=== PATIENT | male | born 1945 | race American Indian/Alaskan Native ===

== ENCOUNTER 2019-11-06 18:01 | Emergency (ER) | payer MEDICARE ==
[2019-11-06 19:40] LABS: Eosinophils # (Auto) 0.3 K/mm3 (0.0-0.4); Eosinophils % (Auto) 6.1 % (0.0-4.3); Hematocrit 37.5 % (35.5-45.6); Hemoglobin 12.6 gm/dl (11.8-15.2); Lymphocytes # (Auto) 1.1 K/mm3 (1.2-5.4); Lymphocytes % (Auto) 23.5 % (13.4-35.0); Mean Corpuscular HGB Conc 34 % (32-34); Mean Corpuscular Volume 88 fl (84-94); Monocytes # (Auto) 0.4 K/mm3 (0.0-0.8); Monocytes % (Auto) 9.5 % (0.0-7.3); Platelet Count 194 K/mm3 (140-440); Red Blood Count 4.24 M/mm3 (3.65-5.03); Red Cell Distribution Width 14.9 % (13.2-15.2)
[2019-11-06 20:01] LABS: Calcium 9.3 mg/dL (8.4-10.2)
[2019-11-06 20:01] LABS: Bilirubin,Urine NEG (Negative); Blood,Urine NEG (Negative); Color,Urine Yellow (Yellow); Mucus,Urine FEW /HPF; Protein,Urine <15 mg/dL mg/dL (Negative); Urobilinogen,Urine < 2.0 mg/dL (<2.0)
[2019-11-06 20:02] LABS: Amphetamine Screen,Urine PRESUMPTIVE NEGATIVE; Benzodiazepines Screen,Urine PRESUMPTIVE NEGATIVE; Cannabinoid Screen,Urine PRESUMPTIVE NEGATIVE; Cocaine Screen,Urine PRESUMPTIVE NEGATIVE; Methadone Screen,Urine PRESUMPTIVE NEGATIVE; Opiate Screen,Urine PRESUMPTIVE NEGATIVE
--- NOTE | 2019-11-06 20:03 | Emergency Department Report ---
ED Altered Mental Status HPI - General Chief Complaint: Medical Clearance Stated Complaint: HALLUCINATIONS PUI?: No Time Seen by Provider: 11/06/19 19:36 Source: patient Mode of arrival: Ambulatory Limitations: No Limitations - History of Present Illness Initial Comments: Mr. Bernal is a 74-year-old male with history of diabetes mellitus, hypertension, hyperlipidemia, prostate cancer who presents with paranoia, unusual behavior, delusional thought pattern for several months. Patient denies any pain or discomfort at this time. Patient referred from PCPs office for further evaluation. Further history obtained from daughter Jojo Roberts . She recently traveled from [facility] to assist with the medical care of her father. She has been called several times by his neighbors and police officers for abnormal behavior. Police officers have been called at least 9 different times by neighbors. Patient has been sleeping in his car. He is afraid of people who are in the home and garage. These people do not exist. He also suspects that these individuals desire to take his home away from him. Family friend informed the daughter that he was afraid of watching TV a few months. He felt that the individuals on TV were talking to him in an aggressive way. He actually hid himself from the television while it was on. He also informed his physician that people in magazine pictures are speaking to him. Daughter requested [id number] involuntary hold. She attempted to have patient placed in in psychiatric facility. However the facility staff member informed her that patient needed medical clearance and psychiatric consultation in the emergency department. Patient was evaluated by his primary care physician of over 15 years Dr. Cher morgan. Complaint: altered mental status -: Gradual, month(s) (Several months) Severity: severe Consistency of Symptoms: waxing and waning, getting worse Context: other (Paranoia, hallucinations, delusional thought pattern) Associated Symptoms: denies other symptoms - Related Data Home Medications Medication Instructions Recorded Confirmed Last Taken Glimepiride [Amaryl] 2 mg PO UNK 11/09/19 11/09/19 Unknown Pravastatin Sodium [Pravastatin] 10 mg PO QHS 11/09/19 11/09/19 Unknown lisinopriL [Zestril] 5 mg PO QDAY 11/09/19 11/09/19 Unknown metFORMIN [Glucophage] 500 tab PO UNK 11/09/19 11/09/19 Unknown Allergies Allergy/AdvReac Type Severity Reaction Status Date / Time No Known Allergies Allergy Unverified 11/06/19 18:48 ED Review of Systems ROS: Stated complaint: HALLUCINATIONS Other details as noted in HPI Comment: All other systems reviewed and negative Constitutional: denies: fever, malaise Respiratory: denies: cough, shortness of breath Gastrointestinal: denies: abdominal pain, nausea, vomiting Psychiatric: auditory hallucinations, visual hallucinations. denies: homicidal thoughts, suicidal thoughts ED Past Medical Hx - Past Medical History Previous Medical History?: Yes Hx Hypertension: Yes Hx Diabetes: Yes Additional medical history: HLD, prostate ca - Surgical History Past Surgical History?: Yes Additional Surgical History: Prostate - Social History Smoking Status: Never Smoker - Medications Home Medications: Home Medications Medication Instructions Recorded Confirmed Last Taken Type Glimepiride [Amaryl] 2 mg PO UNK 11/09/19 11/09/19 Unknown History Pravastatin Sodium [Pravastatin] 10 mg PO QHS 11/09/19 11/09/19 Unknown History lisinopriL [Zestril] 5 mg PO QDAY 11/09/19 11/09/19 Unknown History metFORMIN [Glucophage] 500 tab PO UNK 11/09/19 11/09/19 Unknown History ED Physical Exam - General Limitations: No Limitations General appearance: alert, in no apparent distress, other (Oriented to name, "[facility]", when asked about date "I do not care about dates. CLose to november. Year july be 2019") - Head Head exam: Present: atraumatic, normocephalic - Eye Eye exam: Present: normal appearance - ENT ENT exam: Present: mucous membranes moist - Neck Neck exam: Present: normal inspection, full ROM - Respiratory Respiratory exam: Present: normal lung sounds bilaterally. Absent: respiratory distress, wheezes, rales, rhonchi - Cardiovascular Cardiovascular Exam: Present: bradycardia, irregular rhythm. Absent: systolic murmur, diastolic murmur, rubs, gallop - GI/Abdominal GI/Abdominal exam: Present: soft, normal bowel sounds. Absent: distended, tenderness, guarding, rebound - Rectal Rectal exam: Present: deferred - Extremities Exam Extremities exam: Present: normal inspection - Back Exam Back exam: Present: normal inspection - Neurological Exam Neurological exam: Present: alert, other (oriented to name, "hospital") - Psychiatric Psychiatric exam: Present: flat affect - Skin Skin exam: Present: warm, dry, intact, normal color. Absent: rash ED Course Vital Signs 11/06/19 11/07/19 11/08/19 18:51 21:20 01:34 Temperature 98.1 F 98.4 F 98.4 F Pulse Rate 55 L 55 L 56 L Respiratory 18 18 18 Rate Blood Pressure 127/70 Blood Pressure 141/76 139/70 [Left] O2 Sat by Pulse 100 99 100 Oximetry 11/08/19 08:27 Temperature 97.8 F Pulse Rate 66 Respiratory 20 Rate Blood Pressure Blood Pressure 123/75 [Left] O2 Sat by Pulse 96 Oximetry - Lab Data Result diagrams: 11/06/19 19:16 11/07/19 16:45 Lab Results 11/06/19 11/06/19 11/06/19 Range/Units 19:16 19:16 19:41 WBC 4.5 (4.5-11.0) K/mm3 RBC 4.24 (3.65-5.03) M/mm3 Hgb 12.6 (11.8-15.2) gm/dl Hct 37.5 (35.5-45.6) % MCV 88 (84-94) fl MCH 30 (28-32) pg MCHC 34 (32-34) % RDW 14.9 (13.2-15.2) % Plt Count 194 (140-440) K/mm3 Lymph % (Auto) 23.5 (13.4-35.0) % [place] % (Auto) 9.5 H (0.0-7.3) % Eos % (Auto) 6.1 H (0.0-4.3) % Baso % (Auto) 1.0 (0.0-1.8) % Lymph # 1.1 L (1.2-5.4) K/mm3 [place] # 0.4 (0.0-0.8) K/mm3 Eos # 0.3 (0.0-0.4) K/mm3 Baso # 0.0 (0.0-0.1) K/mm3 Seg Neutrophils % 59.9 (40.0-70.0) % Seg Neutrophils # 2.7 (1.8-7.7) K/mm3 D-Dimer (0-234) ng/mlDDU Sodium 138 (137-145) mmol/L Potassium 3.6 (3.6-5.0) mmol/L Chloride 101.8 (98-107) mmol/L Carbon Dioxide 24 (22-30) mmol/L Anion Gap 16 mmol/L BUN 15 (9-20) mg/dL Creatinine 1.2 (0.8-1.3) mg/dL Estimated GFR 59 ml/min BUN/Creatinine Ratio 13 % Glucose 134 H (75-100) mg/dL Calcium 9.3 (8.4-10.2) mg/dL Ferritin (30.0-300.0) ng/mL Total Bilirubin 0.50 (0.1-1.2) mg/dL AST 20 (5-40) units/L ALT 18 (7-56) units/L Alkaline Phosphatase 66 (35-129) units/L Lactate Dehydrogenase (91-180) units/L C-Reactive Protein (0.00-1.30) mg/dL Total Protein 7.1 (6.3-8.2) g/dL Albumin 4.0 (3.9-5) g/dL Albumin/Globulin Ratio 1.3 % Procalcitonin (<0.15) ng/mL TSH (0.270-4.200) mlU/mL Urine Color Yellow (Yellow) Urine Turbidity Clear (Clear) Urine pH 5.0 (5.0-7.0) Ur Specific D[place]key 1.021 (1.003-1.030) Urine Protein <15 mg/dl (Negative) mg/dL Urine Glucose (UA) Neg (Negative) mg/dL Urine Ketones Neg (Negative) mg/dL Urine Blood Neg (Negative) Urine Nitrite Neg (Negative) Urine Bilirubin Neg (Negative) Urine Urobilinogen < 2.0 (<2.0) mg/dL Ur Leukocyte Esterase Neg (Negative) Urine WBC (Auto) 3.0 (0.0-6.0) /HPF Urine RBC (Auto) 1.0 (0.0-6.0) /HPF U Epithel Cells (Auto) < 1.0 (0-13.0) /HPF Urine Mucus Few /HPF Salicylates (2.8-20.0) mg/dL Urine Opiates Screen Urine Methadone Screen Acetaminophen (10.0-30.0) ug/mL Ur Barbiturates Screen Ur Phencyclidine Scrn Ur Amphetamines Screen U Benzodiazepines Scrn Urine Cocaine Screen U Marijuana (THC) Screen Drugs of Abuse Note Plasma/Serum Alcohol (0-0.07) % Coronavirus (PCR) (Negative) 11/06/19 11/06/19 11/06/19 Range/Units 19:41 19:42 19:42 WBC (4.5-11.0) K/mm3 RBC (3.65-5.03) M/mm3 Hgb (11.8-15.2) gm/dl Hct (35.5-45.6) % MCV (84-94) fl MCH (28-32) pg MCHC (32-34) % RDW (13.2-15.2) % Plt Count (140-440) K/mm3 Lymph % (Auto) (13.4-35.0) % [place] % (Auto) (0.0-7.3) % Eos % (Auto) (0.0-4.3) % Baso % (Auto) (0.0-1.8) % Lymph # (1.2-5.4) K/mm3 [place] # (0.0-0.8) K/mm3 Eos # (0.0-0.4) K/mm3 Baso # (0.0-0.1) K/mm3 Seg Neutrophils % (40.0-70.0) % Seg Neutrophils # (1.8-7.7) K/mm3 D-Dimer (0-234) ng/mlDDU Sodium (137-145) mmol/L Potassium (3.6-5.0) mmol/L Chloride (98-107) mmol/L Carbon Dioxide (22-30) mmol/L Anion Gap mmol/L BUN (9-20) mg/dL Creatinine (0.8-1.3) mg/dL Estimated GFR ml/min BUN/Creatinine Ratio % Glucose (75-100) mg/dL Calcium (8.4-10.2) mg/dL Ferritin (30.0-300.0) ng/mL Total Bilirubin (0.1-1.2) mg/dL AST (5-40) units/L ALT (7-56) units/L Alkaline Phosphatase (35-129) units/L Lactate Dehydrogenase (91-180) units/L C-Reactive Protein (0.00-1.30) mg/dL Total Protein (6.3-8.2) g/dL Albumin (3.9-5) g/dL Albumin/Globulin Ratio % Procalcitonin (<0.15) ng/mL TSH 1.500 (0.270-4.200) mlU/mL Urine Color (Yellow) Urine Turbidity (Clear) Urine pH (5.0-7.0) Ur Specific [place] (1.003-1.030) Urine Protein (Negative) mg/dL Urine Glucose (UA) (Negative) mg/dL Urine Ketones (Negative) mg/dL Urine Blood (Negative) Urine Nitrite (Negative) Urine Bilirubin (Negative) Urine Urobilinogen (<2.0) mg/dL Ur Leukocyte Esterase (Negative) Urine WBC (Auto) (0.0-6.0) /HPF Urine RBC (Auto) (0.0-6.0) /HPF U Epithel Cells (Auto) (0-13.0) /HPF Urine Mucus /HPF Salicylates < 0.3 L (2.8-20.0) mg/dL Urine Opiates Screen Presumptive negative Urine Methadone Screen Presumptive negative Acetaminophen (10.0-30.0) ug/mL Ur Barbiturates Screen Presumptive negative Ur Phencyclidine Scrn Presumptive negative Ur Amphetamines Screen Presumptive negative U Benzodiazepines Scrn Presumptive negative Urine Cocaine Screen Presumptive negative U Marijuana (THC) Screen Presumptive negative Drugs of Abuse Note Disclamer Plasma/Serum Alcohol (0-0.07) % Coronavirus (PCR) (Negative) 11/06/19 11/06/19 11/07/19 Range/Units 19:42 19:42 16:45 WBC (4.5-11.0) K/mm3 RBC (3.65-5.03) M/mm3 Hgb (11.8-15.2) gm/dl Hct (35.5-45.6) % MCV (84-94) fl MCH (28-32) pg MCHC (32-34) % RDW (13.2-15.2) % Plt Count (140-440) K/mm3 Lymph % (Auto) (13.4-35.0) % [place] % (Auto) (0.0-7.3) % Eos % (Auto) (0.0-4.3) % Baso % (Auto) (0.0-1.8) % Lymph # (1.2-5.4) K/mm3 [place] # (0.0-0.8) K/mm3 Eos # (0.0-0.4) K/mm3 Baso # (0.0-0.1) K/mm3 Seg Neutrophils % (40.0-70.0) % Seg Neutrophils # (1.8-7.7) K/mm3 D-Dimer 939.86 H (0-234) ng/mlDDU Sodium (137-145) mmol/L Potassium (3.6-5.0) mmol/L Chloride (98-107) mmol/L Carbon Dioxide (22-30) mmol/L Anion Gap mmol/L BUN (9-20) mg/dL Creatinine (0.8-1.3) mg/dL Estimated GFR ml/min BUN/Creatinine Ratio % Glucose (75-100) mg/dL Calcium (8.4-10.2) mg/dL Ferritin (30.0-300.0) ng/mL Total Bilirubin (0.1-1.2) mg/dL AST (5-40) units/L ALT (7-56) units/L Alkaline Phosphatase (35-129) units/L Lactate Dehydrogenase (91-180) units/L C-Reactive Protein (0.00-1.30) mg/dL Total Protein (6.3-8.2) g/dL Albumin (3.9-5) g/dL Albumin/Globulin Ratio % Procalcitonin (<0.15) ng/mL TSH (0.270-4.200) mlU/mL Urine Color (Yellow) Urine Turbidity (Clear) Urine pH (5.0-7.0) Ur Specific [place] (1.003-1.030) Urine Protein (Negative) mg/dL Urine Glucose (UA) (Negative) mg/dL Urine Ketones (Negative) mg/dL Urine Blood (Negative) Urine Nitrite (Negative) Urine Bilirubin (Negative) Urine Urobilinogen (<2.0) mg/dL Ur Leukocyte Esterase (Negative) Urine WBC (Auto) (0.0-6.0) /HPF Urine RBC (Auto) (0.0-6.0) /HPF U Epithel Cells (Auto) (0-13.0) /HPF Urine Mucus /HPF Salicylates (2.8-20.0) mg/dL Urine Opiates Screen Urine Methadone Screen Acetaminophen 5.0 L (10.0-30.0) ug/mL Ur Barbiturates Screen Ur Phencyclidine Scrn Ur Amphetamines Screen U Benzodiazepines Scrn Urine Cocaine Screen U Marijuana (THC) Screen Drugs of Abuse Note Plasma/Serum Alcohol < 0.01 (0-0.07) % Coronavirus (PCR) (Negative) 11/07/19 11/07/19 11/07/19 Range/Units 16:45 16:45 16:45 WBC (4.5-11.0) K/mm3 RBC (3.65-5.03) M/mm3 Hgb (11.8-15.2) gm/dl Hct (35.5-45.6) % MCV (84-94) fl MCH (28-32) pg MCHC (32-34) % RDW (13.2-15.2) % Plt Count (140-440) K/mm3 Lymph % (Auto) (13.4-35.0) % [place] % (Auto) (0.0-7.3) % Eos % (Auto) (0.0-4.3) % Baso % (Auto) (0.0-1.8) % Lymph # (1.2-5.4) K/mm3 [place] # (0.0-0.8) K/mm3 Eos # (0.0-0.4) K/mm3 Baso # (0.0-0.1) K/mm3 Seg Neutrophils % (40.0-70.0) % Seg Neutrophils # (1.8-7.7) K/mm3 D-Dimer (0-234) ng/mlDDU Sodium (137-145) mmol/L Potassium (3.6-5.0) mmol/L Chloride (98-107) mmol/L Carbon Dioxide (22-30) mmol/L Anion Gap mmol/L BUN (9-20) mg/dL Creatinine (0.8-1.3) mg/dL Estimated GFR ml/min BUN/Creatinine Ratio % Glucose 132 H (75-100) mg/dL Calcium (8.4-10.2) mg/dL Ferritin 77.4 (30.0-300.0) ng/mL Total Bilirubin (0.1-1.2) mg/dL AST (5-40) units/L ALT (7-56) units/L Alkaline Phosphatase (35-129) units/L Lactate Dehydrogenase 159 (91-180) units/L C-Reactive Protein 0.10 (0.00-1.30) mg/dL Total Protein (6.3-8.2) g/dL Albumin (3.9-5) g/dL Albumin/Globulin Ratio % Procalcitonin < 0.05 (<0.15) ng/mL TSH (0.270-4.200) mlU/mL Urine Color (Yellow) Urine Turbidity (Clear) Urine pH (5.0-7.0) Ur Specific [place] (1.003-1.030) Urine Protein (Negative) mg/dL Urine Glucose (UA) (Negative) mg/dL Urine Ketones (Negative) mg/dL Urine Blood (Negative) Urine Nitrite (Negative) Urine Bilirubin (Negative) Urine Urobilinogen (<2.0) mg/dL Ur Leukocyte Esterase (Negative) Urine WBC (Auto) (0.0-6.0) /HPF Urine RBC (Auto) (0.0-6.0) /HPF U Epithel Cells (Auto) (0-13.0) /HPF Urine Mucus /HPF Salicylates (2.8-20.0) mg/dL Urine Opiates Screen Urine Methadone Screen Acetaminophen (10.0-30.0) ug/mL Ur Barbiturates Screen Ur Phencyclidine Scrn Ur Amphetamines Screen U Benzodiazepines Scrn Urine Cocaine Screen U Marijuana (THC) Screen Drugs of Abuse Note Plasma/Serum Alcohol (0-0.07) % Coronavirus (PCR) (Negative) 11/08/19 Range/Units 09:48 WBC (4.5-11.0) K/mm3 RBC (3.65-5.03) M/mm3 Hgb (11.8-15.2) gm/dl Hct (35.5-45.6) % MCV (84-94) fl MCH (28-32) pg MCHC (32-34) % RDW (13.2-15.2) % Plt Count (140-440) K/mm3 Lymph % (Auto) (13.4-35.0) % [place] % (Auto) (0.0-7.3) % Eos % (Auto) (0.0-4.3) % Baso % (Auto) (0.0-1.8) % Lymph # (1.2-5.4) K/mm3 [place] # (0.0-0.8) K/mm3 Eos # (0.0-0.4) K/mm3 Baso # (0.0-0.1) K/mm3 Seg Neutrophils % (40.0-70.0) % Seg Neutrophils # (1.8-7.7) K/mm3 D-Dimer (0-234) ng/mlDDU Sodium (137-145) mmol/L Potassium (3.6-5.0) mmol/L Chloride (98-107) mmol/L Carbon Dioxide (22-30) mmol/L Anion Gap mmol/L BUN (9-20) mg/dL Creatinine (0.8-1.3) mg/dL Estimated GFR ml/min BUN/Creatinine Ratio % Glucose (75-100) mg/dL Calcium (8.4-10.2) mg/dL Ferritin (30.0-300.0) ng/mL Total Bilirubin (0.1-1.2) mg/dL AST (5-40) units/L ALT (7-56) units/L Alkaline Phosphatase (35-129) units/L Lactate Dehydrogenase (91-180) units/L C-Reactive Protein (0.00-1.30) mg/dL Total Protein (6.3-8.2) g/dL Albumin (3.9-5) g/dL Albumin/Globulin Ratio % Procalcitonin (<0.15) ng/mL TSH (0.270-4.200) mlU/mL Urine Color (Yellow) Urine Turbidity (Clear) Urine pH (5.0-7.0) Ur Specific [place] (1.003-1.030) Urine Protein (Negative) mg/dL Urine Glucose (UA) (Negative) mg/dL Urine Ketones (Negative) mg/dL Urine Blood (Negative) Urine Nitrite (Negative) Urine Bilirubin (Negative) Urine Urobilinogen (<2.0) mg/dL Ur Leukocyte Esterase (Negative) Urine WBC (Auto) (0.0-6.0) /HPF Urine RBC (Auto) (0.0-6.0) /HPF U Epithel Cells (Auto) (0-13.0) /HPF Urine Mucus /HPF Salicylates (2.8-20.0) mg/dL Urine Opiates Screen Urine Methadone Screen Acetaminophen (10.0-30.0) ug/mL Ur Barbiturates Screen Ur Phencyclidine Scrn Ur Amphetamines Screen U Benzodiazepines Scrn Urine Cocaine Screen U Marijuana (THC) Screen Drugs of Abuse Note Plasma/Serum Alcohol (0-0.07) % Coronavirus (PCR) Negative (Negative) - EKG Data EKG shows normal: sinus rhythm, axis, ST-T waves Rate: bradycardia 11/06/19 20:30 EKG obtained 2019 EKG interpreted by pa Sinus bradycardia rate 55 bpm at times are regular right bundle branch block no ST elevation nonischemic T wave pattern normal QTC - Medical Decision Making With subacute onset of paranoia delusions hallucinations I suspect new diagnosis of dementia. Patient is now lucid calm and cooperative. He would be appropriate for [facility] stabilization. Awaiting consultation by both psychiatry team and case management. Patient is medically clear for psychiatric care With extensive evaluation in the emergency department which includes EKG, serum and urine studies, CT head, CVA, metabolic derangement, infection has been ruled out. No indication of intracranial process such as hemorrhage or tumor. Patient was admitted to our inpatient psychiatric Critical care attestation.: If time is entered above; I have spent that time in minutes in the direct care of this critically ill patient, excluding procedure time. 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
--- NOTE | 2019-11-06 21:23 | Cat Scan Report ---
CT HEAD WITHOUT CONTRAST INDICATION / CLINICAL INFORMATION: Altered Mental Status. TECHNIQUE: All CT scans at this location are performed using CT dose reduction for ALARA by means of automated e xposure control. COMPARISON: None available. FINDINGS: HEMORRHAGE: No evidence of intracranial hemorrhage or extra-axial fluid collection. EXTRA-AXIAL SPACES: Cortical sulci and sylvian fissures are mildly enlarged reflecting a degree of pa renchymal volume loss which is within normal limits for the patient's age of 74 years. Basilar cister ns have an unremarkable appearance. VENTRICULAR SYSTEM: The third and lateral ventricles are mildly enlarged reflecting presence of age r elated parenchymal volume loss. CEREBRAL PARENCHYMA: Periventricular and deep white matter lucency is observed. This is probably seco ndary to microvascular ischemic change. There is no indication of recent infarction. No areas of ence phalomalacia are identified. MIDLINE SHIFT OR HERNIATION: There is no mass effect. CEREBELLUM / BRAINSTEM: Brainstem has an unremarkable appearance. Age related cerebellar atrophy is n oted. MIDLINE STRUCTURES:Pituitary gland has an unremarkable appearance. No abnormalities are seen in the p ineal region. INTRACRANIAL VESSELS:Calcified atherosclerotic plaque is present along the course of the cavernous se gments of both internal carotid arteries. Similar findings are seen at the distal vertebral arteries. ORBITS: visualized portions of the orbits have an unremarkable appearance. SOFT TISSUES of HEAD: No significant abnormality. CALVARIUM: Evaluation of bone windows reveals no abnormalities. PARANASAL SINUSES / MASTOID AIR CELLS: Paranasal sinuses are free from inflammatory mucosal disease. Mastoid air cells are normally pneumatized. IMPRESSION: 1. Age-appropriate parenchymal volume loss and microvascular ischemic change. 2. No acute intracranial abnormality. Signer Name: Mello Martínez MD Signed: 11/06/2019 9:18 PM Workstation Name: [id number]
[2019-11-07 17:37] LABS: C-Reactive Protein 0.1 mg/dL (0.00-1.30)
[2019-11-08 08:28] VITALS: BP 123/75
== END 2019-11-08 16:06 ==
LOC: ED 18:01 → EEVIPCON 18:01 → ED 11-08 16:06
DX: F03.90 Unspecified dementia, unspecified severity, without behavioral disturbance, psychotic disturbance, mood disturbance, and anxiety (principal); F29 Unspecified psychosis not due to a substance or known physiological condition; I10 Essential (primary) hypertension; E78.5 Hyperlipidemia, unspecified; E11.9 Type 2 diabetes mellitus without complications; Z98.890 Other specified postprocedural states; Z79.899 Other long term (current) drug therapy; Z03.818 Encounter for observation for suspected exposure to other biological agents ruled out
CPT/HCPCS: 36415; 70450; 80053; 80307; 81001; 82728; 82947; 83615; 84145; 84443; 85025; 85379; 86140; 87086; 93005; 99285; U0003; 80320; G0480

== ENCOUNTER 2019-11-23 13:08 | Observation (INO) | payer MEDICARE ==
[2019-11-23] MEDS ORDERED: ASPIRIN 81 MG TAB CHEW PO ONE (13:27)
[2019-11-23 14:06] LABS: Basophils % (Auto) 0.7 % (0.0-1.8); Eosinophils # (Auto) 0.2 K/mm3 (0.0-0.4); Eosinophils % (Auto) 4.3 % (0.0-4.3); Hemoglobin 12.9 gm/dl (11.8-15.2); Lymphocytes % (Auto) 23.5 % (13.4-35.0); Mean Corpuscular HGB Conc 33 % (32-34); Mean Corpuscular Volume 88 fl (84-94); Monocytes # (Auto) 0.6 K/mm3 (0.0-0.8); Monocytes % (Auto) 14.5 % (0.0-7.3); Platelet Count 214 K/mm3 (140-440); Red Blood Count 4.42 M/mm3 (3.65-5.03); Red Cell Distribution Width 14.7 % (13.2-15.2)
--- NOTE | 2019-11-23 14:15 | XRay Report ---
CHEST 1 VIEW INDICATION / CLINICAL INFORMATION: Chest Pain. COMPARISON: 11/14/2019 FINDINGS: SUPPORT DEVICES: None. HEART / MEDIASTINUM: No significant abnormality. LUNGS / PLEURA: No significant pulmonary or pleural abnormality. No pneumothorax. ADDITIONAL FINDINGS: No significant additional findings. IMPRESSION: 1. No acute findings. Signer Name: Yinka Fernandes MD Signed: 11/23/2019 2:10 PM Workstation Name: [id number]
[2019-11-23 14:17] LABS: BUN/Creatinine Ratio 13; Blood Urea Nitrogen 13 mg/dL (9-20); Calcium 9.5 mg/dL (8.4-10.2); Hemolysis Index 11
[2019-11-23 14:21] LABS: INR 1.01 (0.87-1.13); Partial Thromboplastin Time 28.4 Sec. (24.2-36.6)
--- NOTE | 2019-11-23 15:39 | Emergency Department Report ---
ED Chest Pain HPI - General Chief Complaint: Chest Pain Stated Complaint: CHEST PAIN Time Seen by Provider: 11/23/19 13:27 Source: patient, EMS Mode of arrival: Stretcher Limitations: No Limitations - History of Present Illness Initial Comments: Patient is 74-year-old male with history of dementia, hypertension and prostatic cancer. Patient had a witnessed cardiac arrest 2 weeks ago while he was admitted to geriatric facility. Patient presented to the ER complaining of chest pain for the last 3 days on and off. Patient describes his pain as throb [place] and tightness sometimes. Patient denied any shortness of breath, fever, cough, abdominal pain nausea or vomiting. MD Complaint: chest pain -: days(s) (2) Onset: during rest, during exertion Pain Location: left chest Pain Radiation: none Severity: moderate Severity scale (0 -10): 5 Quality: tightness Consistency: constant - Related Data Previous Rx's Medication Instructions Recorded Last Taken Type Aspirin EC [Halfprin EC] 81 mg PO QDAY #30 tablet. 11/18/19 Unknown Rx Melatonin [Melatonin 5MG TAB] 5 mg PO QHS #30 tablet 11/18/19 Unknown Rx Pravastatin Sodium [Pravastatin] 10 mg PO QHS #30 11/18/19 Unknown Rx Allergies Allergy/AdvReac Type Severity Reaction Status Date / Time No Known Allergies Allergy Unverified 11/06/19 18:48 Heart Score - HEART Score History: Moderately suspicious EKG: Non-specific Age: > 65 Risk factors: > 3 risk factors or hx of atherosclerotic disease Troponin: < normal limit HEART Score: 6 - Critical Actions Critical Actions: 4-6 pts:12-16.6% risk of adverse cardiac event. Should be admitted ED Review of Systems ROS: Stated complaint: CHEST PAIN Other details as noted in HPI Comment: All other systems reviewed and negative Constitutional: denies: chills, fever Cardiovascular: chest pain. denies: palpitations, dyspnea on exertion Gastrointestinal: denies: abdominal pain, nausea, vomiting Neurological: denies: headache, weakness, numbness, paresthesias, confusion ED Past Medical Hx - Past Medical History Hx Hypertension: Yes Hx Diabetes: Yes Hx Renal Disease: No Hx Arthritis: No Hx Seizures: No Hx Dementia: Yes Additional medical history: HLD, prostate ca - Surgical History Hx Cholecystectomy: No Additional Surgical History: Prostate - Social History Smoking Status: Never Smoker Substance Use Type: None - Medications Home Medications: Home Medications Medication Instructions Recorded Confirmed Last Taken Type Aspirin EC [Halfprin EC] 81 mg PO QDAY #30 tablet. 11/18/19 11/23/19 Unknown Rx Melatonin [Melatonin 5MG TAB] 5 mg PO QHS #30 tablet 11/18/19 11/23/19 Unknown Rx Pravastatin Sodium [Pravastatin] 10 mg PO QHS #30 11/18/19 11/23/19 Unknown Rx ED Physical Exam - General Limitations: No Limitations General appearance: alert, in no apparent distress - Head Head exam: Present: atraumatic, normocephalic, normal inspection - Eye Eye exam: Present: normal appearance - ENT ENT exam: Present: normal exam, normal orophraynx, mucous membranes moist - Neck Neck exam: Present: normal inspection, full ROM. Absent: tenderness, meningismus - Respiratory Respiratory exam: Present: normal lung sounds bilaterally - Cardiovascular Cardiovascular Exam: Present: regular rate, normal rhythm, normal heart sounds - GI/Abdominal GI/Abdominal exam: Present: soft, normal bowel sounds. Absent: distended, tenderness, guarding, rebound, rigid, organomegaly, mass, bruit, pulsatile mass, hernia - Extremities Exam Extremities exam: Present: normal inspection, full ROM, normal capillary refill. Absent: pedal edema, calf tenderness - Back Exam Back exam: Present: normal inspection, full ROM. Absent: CVA tenderness (R), CVA tenderness (L) - Neurological Exam Neurological exam: Present: alert, oriented X3, CN II-XII intact, normal gait, reflexes normal - Psychiatric Psychiatric exam: Present: normal mood - Skin Skin exam: Present: warm, intact, normal color ED Course Vital Signs 11/23/19 13:11 Temperature 98 F Pulse Rate 64 Respiratory 18 Rate Blood Pressure 142/78 O2 Sat by Pulse 100 Oximetry ED Medical Decision Making - Lab Data Result diagrams: 11/23/19 13:43 11/23/19 13:43 - EKG Data -: EKG Interpreted by Me EKG shows normal: sinus rhythm Rate: normal - EKG Data Interpretation: no acute changes - Radiology Data Radiology results: report reviewed EKG showed right bundle branch block. - Medical Decision Making Patient is 74-year-old male with history of dementia, hypertension and prostatic cancer. Patient had a witnessed cardiac arrest 2 weeks ago while he was admitted to geriatric facility. Patient presented to the ER complaining of chest pain for the last 3 days on and off. Patient describes his pain as throbbing and tightness sometimes. Patient denied any shortness of breath, fever, cough, abdominal pain nausea or vomiting. EKG showed right bundle branch block however there is no ST elevation or depression. Chest x-ray is unremarkable. Labs reviewed and is unremarkable including troponin. I discussed the patient with Dr. Vences, he agreed to admit the patient to medical service for further management. Critical Care Time: Yes Critical care time in (mins) excluding proc time.: 30 Critical care attestation.: If time is entered above; I have spent that time in minutes in the direct care of this critically ill patient, excluding procedure time. ED Disposition Clinical Impression: Chest pain, Unstable angina, History of cardiac arrest Disposition: 09 OP ADMIT IP TO THIS HOSP Is pt being admited?: Yes Condition: Stable Instructions: Chest Pain (ED), Angina (ED) Referrals: PRIMARY CARE, [Primary Care Provider] - 3-5 Days
[2019-11-23 20:44] LABS: Alanine Aminotransferase 34 units/L (7-56); Albumin 4.2 g/dL (3.9-5)
[2019-11-23 20:51] LABS: Bilirubin,Direct < 0.2 mg/dL (0-0.2)
[2019-11-23] MEDS ORDERED: ACETAMINOPHEN 325 MG TAB PO PRN (22:24)
[2019-11-23] MEDS ORDERED: ONDANSETRON 4 MG/2 ML INJ IV PRN (22:24)
[2019-11-23] MEDS ORDERED: oxyCODONE /ACETAMINOPHEN 5-325MG TAB PO PRN (22:25)
[2019-11-23] MEDS ORDERED: HYDROmorphone 1 MG/1 ML INJ IV PRN (22:25)
[2019-11-23] MEDS ORDERED: SODIUM CHLORIDE 0.9% 1000 ML 1,000 ML IV SCH (22:30)
[2019-11-24 03:36] LABS: Basophils % (Auto) 0.8 % (0.0-1.8); Eosinophils # (Auto) 0.2 K/mm3 (0.0-0.4); Eosinophils % (Auto) 4.7 % (0.0-4.3); Hematocrit 41.4 % (35.5-45.6); Hemoglobin 13.4 gm/dl (11.8-15.2); Lymphocytes % (Auto) 24.9 % (13.4-35.0); Mean Corpuscular HGB Conc 32 % (32-34); Mean Corpuscular Volume 89 fl (84-94); Monocytes # (Auto) 0.6 K/mm3 (0.0-0.8); Monocytes % (Auto) 14.4 % (0.0-7.3); Platelet Count 217 K/mm3 (140-440); Red Blood Count 4.66 M/mm3 (3.65-5.03); Red Cell Distribution Width 14.9 % (13.2-15.2)
[2019-11-24 03:55] LABS: Alanine Aminotransferase 30 units/L (7-56); BUN/Creatinine Ratio 13; Blood Urea Nitrogen 14 mg/dL (9-20); Calcium 9.5 mg/dL (8.4-10.2); Hemolysis Index 4
[2019-11-24] MEDS: ASPIRIN EC 81 MG TAB PO SCH (09:40)
[2019-11-24] MEDS: PRAVASTATIN 20 MG TAB PO SCH (21:37)
[2019-11-24] MEDS: MELATONIN 5 MG TAB PO SCH (21:37)
[2019-11-24] MEDS ORDERED: NON-FORMULARY EACH (Pravastatin Sodium [Pravastatin] 10 MG) PO SCH (22:00)
--- NOTE | 2019-11-24 23:31 | History and Physical Report ---
History of Present Illness Date of examination: 11/23/19 Date of admission: 11/23/19 18:36 Chief complaint: Chest pain for 3 days. History of present illness: 74-year-old male with history of dementia, hypertension and prostate cancer was recently admitted to [facility]. Patient had a witnessed cardiac arrest on 11/14/2019. Patient was revived and was transferred to telemetry and had extensive cardiac work-up. Including echocardiogram and carotid duplex scan. Patient comes in with chest pain of 3 days duration. Patient states that it is intermittent and dull to sharp in nature. No diaphoresis. No shortness of breath. No radiation. No exposure to coronavirus. No fever or chills. Patient was admitted to [facility] and was transferred to telemetry because of CODE BLUE. Patient was revived after the CODE BLUE. Unresponsiveness was activated to vasovagal syncope. Admitting diagnosis to telemetry with metabolic encephalopathy, diastolic CHF, d iabetes, hyperlipidemia and hypertension and sinus bradycardia. Patient was in the [facility] from 11/14/2019 05/01/2019 and and and had extensive cardiac work-up including echocardiogram and carotid duplex scan. No Lexiscan was done. Heart score in the H&P - Past Medical History Hypertension: Yes Diabetes: Yes Dementia: Yes Additional medical history: HLD, prostate ca - Surgical History Cholecystectomy: No Additional Surgical History: Prostate Family History Htn - Social History Smoking Status: Never Smoker Substance Use Type: None - Medications Home Medications: Home Medications Medication Instructions Recorded Confirmed Last Taken Type Aspirin EC [Halfprin EC] 81 mg PO QDAY #30 tablet. 11/18/19 11/23/19 Unknown Rx Melatonin [Melatonin 5MG TAB] 5 mg PO QHS #30 tablet 11/18/19 11/23/19 Unknown Rx Pravastatin Sodium [Pravastatin] 10 mg PO QHS #30 11/18/19 11/23/19 Unknown Rx Review of Systems ROS: Stated complaint: CHEST PAIN Other details as noted in HPI Comment: All other systems reviewed and negative Constitutional: denies: chills, fever Cardiovascular: chest pain. denies: palpitations, dyspnea on exertion Gastrointestinal: denies: abdominal pain, nausea, vomiting Neurological: denies: headache, weakness, numbness, paresthesias, confusion Medications and Allergies Allergies Allergy/AdvReac Type Severity Reaction Status Date / Time No Known Allergies Allergy Unverified 11/06/19 18:48 Home Medications Medication Instructions Recorded Confirmed Last Taken Type Aspirin EC [Halfprin EC] 81 mg PO QDAY #30 tablet. 11/18/19 11/23/19 Unknown Rx Melatonin [Melatonin 5MG TAB] 5 mg PO QHS #30 tablet 11/18/19 11/23/19 Unknown Rx Pravastatin Sodium [Pravastatin] 10 mg PO QHS #30 11/18/19 11/23/19 Unknown Rx Active Meds: Active Medications Acetaminophen (Tylenol) 650 mg PO Q4H PRN PRN Reason: Pain MILD(1-3)/Fever >100.5/CASPER Aspirin (Halfprin Ec) 81 mg PO QDAY [facility] Last Admin: 11/24/19 09:40 Dose: 81 mg Documented by: Hydromorphone HCl (Dilaudid) 0.5 mg IV Q3H PRN PRN Reason: Pain , Severe (7-10) Melatonin (Melatonin) 5 mg PO QHS [facility] Last Admin: 11/24/19 21:37 Dose: 5 mg Documented by: Ondansetron HCl (Zofran) 4 mg IV Q8H PRN PRN Reason: Nausea And Vomiting Oxycodone/Acetaminophen (Percocet 5/325) 1 tab PO Q6H PRN PRN Reason: Pain, Moderate (4-6) Pravastatin Sodium (Pravachol) 10 mg PO QHS [facility] Last Admin: 11/24/19 21:37 Dose: 10 mg Documented by: Sodium Chloride (Sodium Chloride Flush Syringe 10 Ml) 10 ml IV BID [facility] Last Admin: 11/24/19 21:37 Dose: 10 ml Documented by: Sodium Chloride (Sodium Chloride Flush Syringe 10 Ml) 10 ml IV PRN PRN PRN Reason: LINE FLUSH Exam - Constitutional Vitals: Temp Pulse Resp BP Pulse Ox 96.7 F L 74 16 159/86 99 11/24/19 19:37 11/24/19 20:00 11/24/19 19:37 11/24/19 19:37 11/24/19 19:37 General appearance: Present: no acute distress, well-nourished - EENT Eyes: Present: PERRL ENT: hearing intact, clear oral mucosa - Neck Neck: Present: supple, normal ROM - Respiratory Respiratory effort: normal Respiratory: bilateral: CTA - Cardiovascular Heart rate: 76 Rhythm: regular Heart Sounds: Present: S1 & S2. Absent: rub, click - Extremities Extremities: pulses symmetrical, No edema Peripheral Pulses: within normal limits - Abdominal General gastrointestinal: Present: soft, non-tender, non-distended, normal bowel sounds Male genitourinary: Present: normal - Integumentary Integumentary: Present: clear, warm, dry - Musculoskeletal Musculoskeletal: gait normal, strength equal bilaterally - Psychiatric Psychiatric: appropriate mood/affect, intact judgment & insight - Neurologic Neurologic: CNII-XII intact, moves all extremities - Allied Health Allied health notes reviewed: nursing, case management HEART Score - HEART Score History: Moderately suspicious EKG: Non-specific Age: > 65 Risk factors: > 3 risk factors or hx of atherosclerotic disease Troponin: Troponin T < 0.010 ng/mL (0.00-0.029) 11/24/19 03:32 Troponin: < normal limit HEART Score: 6 - Critical Actions Critical Actions: 4-6 pts:12-16.6% risk of adverse cardiac event. Should be admitted Results - Labs CBC & Chem 7: 11/24/19 03:32 11/24/19 03:32 Labs: Laboratory Last Values WBC 4.1 K/mm3 (4.5-11.0) L 11/24/19 03:32 RBC 4.66 M/mm3 (3.65-5.03) 11/24/19 03:32 Hgb 13.4 gm/dl (11.8-15.2) 11/24/19 03:32 Hct 41.4 % (35.5-45.6) 11/24/19 03:32 MCV 89 fl (84-94) 11/24/19 03:32 MCH 29 pg (28-32) 11/24/19 03:32 MCHC 32 % (32-34) 11/24/19 03:32 RDW 14.9 % (13.2-15.2) 11/24/19 03:32 Plt Count 217 K/mm3 (140-440) 11/24/19 03:32 Lymph % (Auto) 24.9 % (13.4-35.0) 11/24/19 03:32 [place] % (Auto) 14.4 % (0.0-7.3) H 11/24/19 03:32 Eos % (Auto) 4.7 % (0.0-4.3) H 11/24/19 03:32 Baso % (Auto) 0.8 % (0.0-1.8) 11/24/19 03:32 Lymph # 1.0 K/mm3 (1.2-5.4) L 11/24/19 03:32 [place] # 0.6 K/mm3 (0.0-0.8) 11/24/19 03:32 Eos # 0.2 K/mm3 (0.0-0.4) 11/24/19 03:32 Baso # 0.0 K/mm3 (0.0-0.1) 11/24/19 03:32 Seg Neutrophils % 55.2 % (40.0-70.0) 11/24/19 03:32 Seg Neutrophils # 2.3 K/mm3 (1.8-7.7) 11/24/19 03:32 PT 13.4 Sec. (12.2-14.9) 11/23/19 13:43 INR 1.01 (0.87-1.13) 11/23/19 13:43 APTT 28.4 Sec. (24.2-36.6) 11/23/19 13:43 Sodium 141 mmol/L (137-145) 11/24/19 03:32 Potassium 4.3 mmol/L (3.6-5.0) 11/24/19 03:32 Chloride 101.9 mmol/L (98-107) 11/24/19 03:32 Carbon Dioxide 26 mmol/L (22-30) 11/24/19 03:32 Anion Gap 17 mmol/L 11/24/19 03:32 BUN 14 mg/dL (9-20) 11/24/19 03:32 Creatinine 1.1 mg/dL (0.8-1.3) 11/24/19 03:32 Estimated GFR > 60 ml/min 11/24/19 03:32 BUN/Creatinine Ratio 13 % 11/24/19 03:32 Glucose 96 mg/dL (75-100) 11/24/19 03:32 Hemoglobin A1c 6.5 % (4-6) H 11/24/19 01:23 Calcium 9.5 mg/dL (8.4-10.2) 11/24/19 03:32 Total Bilirubin 0.30 mg/dL (0.1-1.2) 11/24/19 03:32 Direct Bilirubin < 0.2 mg/dL (0-0.2) 11/23/19 13:43 Indirect Bilirubin 0.1 mg/dL 11/23/19 13:43 AST 19 units/L (5-40) 11/24/19 03:32 ALT 30 units/L (7-56) 11/24/19 03:32 Alkaline Phosphatase 103 units/L (35-129) 11/24/19 03:32 Troponin T < 0.010 ng/mL (0.00-0.029) 11/24/19 03:32 NT-Pro-B Natriuret Pep 21.12 pg/mL (0-900) 11/23/19 13:43 Total Protein 6.9 g/dL (6.3-8.2) 11/24/19 03:32 Albumin 4.0 g/dL (3.9-5) 11/24/19 03:32 Albumin/Globulin Ratio 1.4 % 11/24/19 03:32 - Imaging and Cardiology EKG: report reviewed (Sinus rhythm, heart rate of 78/min, right bundle branch block) Chest x-ray: report reviewed (No acute findings) Imaging and Cardiology: Echocardiogram done on 11/15/2019 Echocardiogram Ejection fraction of 45 to 50% Mild mitral regurgitation Mild concentric left ventricular hypertrophy Left anterior chamber is mildly dilated. Mild concentric left ventricular hypertrophy is observed. Global left ventricular systolic function is mildly decreased. The estimated ejection fraction is 45 to 50%. 11/19/2019 Carotid duplex scan Final impression no occlusion or hemodynamically significant stenosis of the bilateral carotid arteries. [place]/IV: Voiding Method Toilet IV Catheter Type [Right INT / Saline Lock Antecubital] Assessment and Plan Advance Directives: Yes (Full code) VTE prophylaxis?: Chemical Plan of care discussed with patient/family: Yes - Patient Problems (1) Chest pain Current Visit: Yes Status: Acute Plan to address problem: Chest pain work-up Serial troponins Lexiscan in a.m. (2) History of cardiac arrest Current Visit: Yes Status: Acute Plan to address problem: On 11/14/2019 Patient was revived Possible syncope with vasovagal attack (3) Hyperlipidemia Current Visit: No Status: Chronic Qualifiers: Hyperlipidemia type: mixed hyperlipidemia Qualified Code(s): E78.2 - Mixed hyperlipidemia Plan to address problem: Continue statins (4) Hypertension Current Visit: No Status: Chronic Qualifiers: Hypertension type: essential hypertension Qualified Code(s): I10 - Essential (primary) hypertension Plan to address problem: Monitor blood pressure and add antihypertensives as necessary (5) Dementia Current Visit: Yes Status: Chronic Qualifiers: Dementia type: vascular dementia Plan to address problem: Supportive care (6) DVT prophylaxis Current Visit: No Status: Acute Plan to address problem: On heparin and GI prophylaxis
--- NOTE | 2019-11-24 23:33 | Progress Note ---
Assessment and Plan - Patient Problems (1) Chest pain Current Visit: Yes Status: Acute Plan to address problem: Chest pain work-up Serial troponins Lexiscan in a.m. (2) History of cardiac arrest Current Visit: Yes Status: Acute Plan to address problem: On 11/14/2019 Patient was revived Possible syncope with vasovagal attack (3) Sinus bradycardia Current Visit: No Status: Inactive Plan to address problem: Resolved (4) Hyperlipidemia Current Visit: No Status: Chronic Qualifiers: Hyperlipidemia type: mixed hyperlipidemia Qualified Code(s): E78.2 - Mixed hyperlipidemia Plan to address problem: Continue statins (5) Hypertension Current Visit: No Status: Chronic Qualifiers: Hypertension type: essential hypertension Qualified Code(s): I10 - Essential (primary) hypertension Plan to address problem: Monitor blood pressure and add antihypertensives as necessary (6) DVT prophylaxis Current Visit: No Status: Acute Plan to address problem: On heparin and GI prophylaxis Subjective Date of service: 11/24/19 Principal diagnosis: Chest pain rule out CO, hypertension Interval history: 74-year-old male with history of dementia, hypertension and prostate cancer was recently admitted to [facility]. Patient had a witnessed cardiac arrest on 11/14/2019. Patient was revived and was transferred to telemetry and had extensive cardiac work-up. Including echocardiogram and carotid duplex scan. Patient comes in with chest pain of 3 days duration. Patient states that it is intermittent and dull to sharp in nature. No diaphoresis. No shortness of breath. No radiation. No exposure to coronavirus. No fever or chills. Patient was admitted to [facility] and was transferred to telemetry because of CODE BLUE. Patient was revived after the CODE BLUE. Unresponsiveness was activated to vasovagal syncope. Admitting diagnosis to telemetry with metabolic encephalopathy, diastolic CHF, diabetes, hyperlipidemia and hypertension and sinus bradycardia. Patient was in the [facility] from 11/14/2019 05/01/2019 and and and had extensive cardiac work-up including echocardiogram and carotid duplex scan. No Lexiscan was done. Objective - Constitutional Vitals: Vital Signs - 12hr 11/24/19 11/24/19 11/24/19 11:42 16:18 17:51 Temperature 98.5 F 98.3 F Pulse Rate 61 51 L 60 Respiratory 20 20 Rate Blood Pressure 149/67 110/78 O2 Sat by Pulse 99 94 Oximetry 09/13/20 09/13/20 19:37 20:00 Temperature 96.7 F L Pulse Rate 71 74 Respiratory 16 Rate Blood Pressure 159/86 O2 Sat by Pulse 99 Oximetry General appearance: Present: no acute distress, well-nourished - EENT Eyes: PERRL, EOM intact ENT: hearing intact, clear oral mucosa Ears: bilateral: normal - Neck Neck: supple, normal ROM - Respiratory Respiratory effort: normal Respiratory: bilateral: CTA - Breasts Breasts: normal - Cardiovascular Heart rate: 68 Rhythm: regular Heart Sounds: Present: S1 & S2. Absent: gallop, rub Extremities: pulses intact, No edema, normal color, Full ROM - Gastrointestinal General gastrointestinal: Present: soft, non-tender, non-distended, normal bowel sounds Rectal Exam: deferred - Genitourinary Male genitourinary: normal - Integumentary Integumentary: clear, warm, dry - Musculoskeletal Musculoskeletal: 1, strength equal bilaterally - Neurologic Neurologic: moves all extremities - Psychiatric Psychiatric: memory intact, appropriate mood/affect, intact judgment & insight - Allied health notes Allied health notes reviewed: nursing, case management - Labs CBC & Chem 7: 11/24/19 03:32 11/24/19 03:32 Labs: Abnormal lab results 11/24/19 11/24/19 Range/Units 01:23 03:32 WBC 4.1 L (4.5-11.0) K/mm3 [place] % (Auto) 14.4 H (0.0-7.3) % Eos % (Auto) 4.7 H (0.0-4.3) % Lymph # 1.0 L (1.2-5.4) K/mm3 Hemoglobin A1c 6.5 H (4-6) % HEART Score - HEART Score EKG: Non-specific Age: > 65 Risk factors: > 3 risk factors or hx of atherosclerotic disease Troponin: Troponin T < 0.010 ng/mL (0.00-0.029) 11/24/19 03:32 Troponin: < normal limit - Critical Actions Critical Actions: 4-6 pts:12-16.6% risk of adverse cardiac event. Should be admitted
[2019-11-25 08:28] LABS: Basophils % (Auto) 0.9 % (0.0-1.8); Eosinophils # (Auto) 0.2 K/mm3 (0.0-0.4); Eosinophils % (Auto) 4.4 % (0.0-4.3); Hematocrit 40.1 % (35.5-45.6); Hemoglobin 13.3 gm/dl (11.8-15.2); Lymphocytes # (Auto) 0.8 K/mm3 (1.2-5.4); Lymphocytes % (Auto) 19.4 % (13.4-35.0); Mean Corpuscular HGB Conc 33 % (32-34); Mean Corpuscular Volume 87 fl (84-94); Monocytes # (Auto) 0.5 K/mm3 (0.0-0.8); Monocytes % (Auto) 13.5 % (0.0-7.3); Platelet Count 223 K/mm3 (140-440); Red Cell Distribution Width 14.6 % (13.2-15.2)
[2019-11-25] MEDS ORDERED: REGADENOSON 0.4 MG/5 ML INJ IV ONE ×2 (08:39→08:42)
[2019-11-25 09:00] LABS: Alanine Aminotransferase 27 units/L (7-56); Albumin 4.1 g/dL (3.9-5); BUN/Creatinine Ratio 13; Blood Urea Nitrogen 14 mg/dL (9-20); Hemolysis Index 6
--- NOTE | 2019-11-25 10:56 | Consultation ---
History of Present Illness Consult date: 11/25/19 Consult reason: chest pain History of present illness: The patient is a 74-year-old man admitted with chest pain. The chest pain is poorly characterized, and not reliably exertional. ECG is in normal sinus rhythm, right bundle branch block with no ST or T wave abnormalities. The right bundle branch block is chronic, present on his previous ECGs. Serial cardiac enzymes were negative. The patient was ordered for a thallium stress test by the medical service, which is planned for today. He was in this hospital 2 weeks ago, for psychiatric evaluation of complaints of hallucinations. During his course in the [facility] psych unit, there was an episode of transient loss of consciousness, for which he received a brief medical alert resuscitation, and thereafter transferred to telemetry. By the time of his admission to telemetry the patient was alert and oriented x3, stable sinus rhythm and stable hemodynamics and looking well. He had no chest pain or shortness of breath either before or following the event. ECG showed no ischemic changes. There was no documented ECG or clinical evidence to suggest a "cardiac arrest". During that presentation, we ordered an echocardiogram that demonstrated well-preserved left ventricular systolic function with ejection fraction 45 to 50%. We recommended a neuro syncope work-up and work-up for pulmonary embolism, but is unclear if this was completed by the medical service prior to the patient's ultimate discharge. On this current presentation, chest x-ray is normal size cardiac silhouette and clear lungs. He has remained in stable sinus rhythm with no reported cardiac dysrhythmias. He reports no dizziness or recurrent syncope. Past History Past Medical History: hypertension, other (Psychiatric hallucinations and del usions) Medications and Allergies Allergies Allergy/AdvReac Type Severity Reaction Status Date / Time No Known Allergies Allergy Unverified 11/06/19 18:48 Home Medications Medication Instructions Recorded Confirmed Last Taken Type Aspirin EC [Halfprin EC] 81 mg PO QDAY #30 tablet. 11/18/19 11/23/19 Unknown Rx Melatonin [Melatonin 5MG TAB] 5 mg PO QHS #30 tablet 11/18/19 11/23/19 Unknown Rx Pravastatin Sodium [Pravastatin] 10 mg PO QHS #30 11/18/19 11/23/19 Unknown Rx Active Meds: Active Medications Acetaminophen (Tylenol) 650 mg PO Q4H PRN PRN Reason: Pain MILD(1-3)/Fever >100.5/CASPER Aspirin (Halfprin Ec) 81 mg PO QDAY [facility] Last Admin: 11/24/19 09:40 Dose: 81 mg Documented by: Hydromorphone HCl (Dilaudid) 0.5 mg IV Q3H PRN PRN Reason: Pain , Severe (7-10) Melatonin (Melatonin) 5 mg PO QHS [facility] Last Admin: 11/24/19 21:37 Dose: 5 mg Documented by: Ondansetron HCl (Zofran) 4 mg IV Q8H PRN PRN Reason: Nausea And Vomiting Oxycodone/Acetaminophen (Percocet 5/325) 1 tab PO Q6H PRN PRN Reason: Pain, Moderate (4-6) Pravastatin Sodium (Pravachol) 10 mg PO QHS [facility] Last Admin: 11/24/19 21:37 Dose: 10 mg Documented by: Sodium Chloride (Sodium Chloride Flush Syringe 10 Ml) 10 ml IV BID [facility] Last Admin: 11/24/19 21:37 Dose: 10 ml Documented by: Sodium Chloride (Sodium Chloride Flush Syringe 10 Ml) 10 ml IV PRN PRN PRN Reason: LINE FLUSH Review of Systems Cardiovascular: chest pain, no orthopnea, no palpitations, no rapid/irregular heart beat, no edema, no syncope, no lightheadedness, no shortness of breath Physical Examination Vital Signs Temp Pulse Resp BP Pulse Ox 98 F 64 18 142/78 100 11/23/19 13:11 11/23/19 13:11 11/23/19 13:11 11/23/19 13:11 11/23/19 13:11 General appearance: no acute distress HEENT: Positive: PERRL Neck: Positive: neck supple Cardiac: Positive: Reg Rate and Rhythm Lungs: Positive: Decreased Breath Sounds Abdomen: Positive: Soft Male genitourinary: Positive: deferred Skin: Positive: Clear Extremities: Absent: edema Results 11/25/19 07:58 11/25/19 07:58 Cardiac Enzymes 11/25/19 Range/Units 07:58 AST 18 (5-40) units/L CBC 11/25/19 Range/Units 07:58 WBC 3.9 L (4.5-11.0) K/mm3 RBC 4.60 (3.65-5.03) M/mm3 Hgb 13.3 (11.8-15.2) gm/dl Hct 40.1 (35.5-45.6) % Plt Count 223 (140-440) K/mm3 Lymph # 0.8 L (1.2-5.4) K/mm3 [place] # 0.5 (0.0-0.8) K/mm3 Eos # 0.2 (0.0-0.4) K/mm3 Baso # 0.0 (0.0-0.1) K/mm3 Comprehensive Metabolic Panel 11/25/19 Range/Units 07:58 Sodium 138 (137-145) mmol/L Potassium 4.8 (3.6-5.0) mmol/L Chloride 98.6 (98-107) mmol/L Carbon Dioxide 25 (22-30) mmol/L BUN 14 (9-20) mg/dL Creatinine 1.1 (0.8-1.3) mg/dL Glucose 115 H (75-100) mg/dL Calcium 10.0 (8.4-10.2) mg/dL AST 18 (5-40) units/L ALT 27 (7-56) units/L Alkaline Phosphatase 109 (35-129) units/L Total Protein 7.7 (6.3-8.2) g/dL Albumin 4.1 (3.9-5) g/dL EKG interpretations - Telemetry EKG Rhythm: Sinus Rhythm (With old right bundle branch block) Assessment and Plan - Patient Problems (1) Chest pain Current Visit: Yes Status: Acute Plan to address problem: We will proceed with thallium stress test for chest pain assessment.
[2019-11-25 13:27] VITALS: BP 127/75
[2019-11-25] MEDS: ASPIRIN EC 81 MG TAB PO SCH (15:40)
--- NOTE | 2019-11-25 18:03 | Discharge Summary ---
Providers - Providers Date of Admission: 11/23/19 18:36 Date of discharge: 11/25/19 Attending physician: BEATRIZ JONES 11/25/19 06:31 Consult to Physician [CONS] Routine Comment: Consulting Provider: LESA RODRIGUEZ Physician Instructions: Reason For Exam: Chest pain, status post cardiac arrest on 11/14/2019 Primary care physician: MARC FREITAS Hospitalization Condition: Fair Hospital course: 74-year-old male with history of dementia, hypertension and prostate cancer was recently admitted to [facility]. Patient had a witnessed cardiac arrest on 11/14/2019. Patient was revived and was transferred to telemetry and had extensive cardiac work-up. Including echocardiogram and carotid duplex scan. Patient comes in with chest pain of 3 days duration. Patient states that it is intermittent and dull to sharp in nature. No diaphoresis. No shortness of breath. No radiation. No exposure to coronavirus. No fever or chills. Patient was admitted to [facility] and was transferred to telemetry because of CODE BLUE. Patient was revived after the CODE BLUE. Unresponsiveness was activated to vasovagal syncope. Admitting diagnosis to telemetry with metabolic encephalopathy, diastolic CHF, diabetes, hyperlipidemia and hypertension and sinus bradycardia. Patient was in the [facility] from 11/14/2019 05/01/2019 and and and had extensive cardiac work-up including echocardiogram and carotid duplex scan. No Lexiscan was done. (1) Acute coronary syndrome Current Visit: Yes Status: Acute Plan to address problem: Chest pain work-up Serial troponins--negative Lexiscan negative (2) GERD Discharged on Protonix (3) Hyperlipidemia Current Visit: No Status: Chronic Qualifiers: Hyperlipidemia type: mixed hyperlipidemia Qualified Code(s): E78.2 - Mixed hyperlipidemia Plan to address problem: Continue statins (4) Hypertension Current Visit: No Status: Chronic Qualifiers: Hypertension type: essential hypertension Qualified Code(s): I10 - Essential (primary) hypertension Plan to address problem: Monitor blood pressure and add antihypertensives as necessary (5) Dementia Current Visit: Yes Status: Chronic Qualifiers: Dementia type: vascular dementia Plan to address problem: Patient lives alone and takes care of himself I have done a cognitive assessment test and he had a high score Disposition: DC-01 TO HOME OR SELFCARE Time spent for discharge: 32 min - Discharge Diagnoses (1) Chest pain Status: Acute (2) History of cardiac arrest Status: Acute (3) Sinus bradycardia Status: Inactive (4) Hyperlipidemia Status: Chronic Qualifiers: Hyperlipidemia type: mixed hyperlipidemia Qualified Code(s): E78.2 - Mixed hyperlipidemia (5) Hypertension Status: Chronic Qualifiers: Hypertension type: essential hypertension Qualified Code(s): I10 - Essenti al (primary) hypertension (6) DVT prophylaxis Status: Acute Core Measure Documentation - Palliative Care Palliative Care/ Comfort Measures: Not Applicable - Core Measures Any of the following diagnoses?: none Exam - Constitutional Vitals: Temp Pulse Resp BP Pulse Ox 98.0 F 70 19 127/75 99 11/25/19 08:20 11/25/19 10:33 11/25/19 08:20 11/25/19 12:20 11/25/19 08:20 General appearance: Present: no acute distress, well-nourished - EENT Eyes: Present: PERRL ENT: hearing intact, clear oral mucosa - Neck Neck: Present: supple, normal ROM - Respiratory Respiratory effort: normal Respiratory: bilateral: CTA - Cardiovascular Heart rate: 78 Rhythm: regular Heart Sounds: Present: S1 & S2. Absent: rub, click - Extremities Extremities: no ischemia, pulses intact, pulses symmetrical, No edema Peripheral Pulses: within normal limits - Abdominal General gastrointestinal: Present: soft, non-tender, non-distended, normal bowel sounds Male genitourinary: Present: normal - Rectal Rectal Exam: deferred - Integumentary Integumentary: Present: clear, warm, dry - Musculoskeletal Musculoskeletal: gait normal, strength equal bilaterally - Psychiatric Psychiatric: appropriate mood/affect, intact judgment & insight - Neurologic Neurologic: CNII-XII intact, moves all extremities - Allied Health Allied health notes reviewed: nursing, case management Plan Activity: no restrictions Diet: low salt Follow up with: SHARA FORREST MD [Referring] - 3-5 Days LESA RODRIGUEZ MD [Staff Physician] - 7 Days
[2019-11-25] MEDS: PRAVASTATIN 20 MG TAB PO SCH (21:40)
[2019-11-25] MEDS: MELATONIN 5 MG TAB PO SCH (21:40)
--- NOTE | 2019-11-25 23:32 | Treadmill Report ---
THALLIUM STRESS TEST LEFT VENTRICLE: Left ventricular chamber size is within normal spread. Perfusion study demonstrates mild diaphragmatic attenuation artifact, otherwise homogeneous uptake of the tracer in all segments, no significant defects identified. Gated analysis demonstrates normal left ventricular systolic function, ejection fraction 66%. CONCLUSION: No demonstrable ischemia on thallium perfusion imaging. Negative study. JOB# [id number] CA/NTS
== END 2019-11-25 22:14 | disposition home or self-care (01) ==
LOC: ED 13:08 → 4A 18:36
PROVIDERS: ADMIT Internal Medicine; ATTEND Internal Medicine
DX: R07.89 Other chest pain (principal); Z20.828 Contact with and (suspected) exposure to other viral communicable diseases; I24.9 Acute ischemic heart disease, unspecified; E78.2 Mixed hyperlipidemia; I11.0 Hypertensive heart disease with heart failure; I50.30 Unspecified diastolic (congestive) heart failure; E11.9 Type 2 diabetes mellitus without complications; G93.41 Metabolic encephalopathy; F01.50 Vascular dementia, unspecified severity, without behavioral disturbance, psychotic disturbance, mood disturbance, and anxiety; K21.9 Gastro-esophageal reflux disease without esophagitis; R00.1 Bradycardia, unspecified; I45.10 Unspecified right bundle-branch block; Z86.74 Personal history of sudden cardiac arrest; Z85.46 Personal history of malignant neoplasm of prostate; Z79.82 Long term (current) use of aspirin; Z79.899 Other long term (current) drug therapy
CPT/HCPCS: 36415; 71045; 78452; 80048; 80053; 80076; 83036; 83880; 84484; 85025; 85610; 85730; 93005; 93017; 99291; A9270; A9502; G0378; J2785; U0003

== ENCOUNTER 2020-07-06 10:26 | Observation (INO) | payer MEDICARE ==
--- NOTE | 2020-07-06 11:43 | Event Note ---
ED Screening Note Date of service: 07/06/20 Time: 11:39 ED Screening Note: Pt was brought to the ER today from assisted living with complaint of left-sided chest pain. Onset this morning. Patient states that he thinks his pain is related to stress. He states that he took his home from him. Past medical history significant for IN but no stents, hypertension, diabetes vascular dementia, meds to [place] encephalopathy, vivid hallucinations This initial assessment/diagnostic orders/clinical plan/treatment(s) is/are subject to change based on patients health status, clinical progression and re- assessment by fellow clinical providers in the ED. Further treatment and workup at subsequent clinical providers discretion. Patient/guardian urged not to elope from the ED as their condition may be serious if not clinically assessed and managed. Initial orders include: Chest pain order set
[2020-07-06 12:22] LABS: INR 0.99 (0.87-1.13); Partial Thromboplastin Time 30.4 Sec. (24.2-36.6)
[2020-07-06 12:33] LABS: Alanine Aminotransferase 20 units/L (7-56); BUN/Creatinine Ratio 8; Blood Urea Nitrogen 10 mg/dL (9-20); Calcium 9.1 mg/dL (8.4-10.2); Hemolysis Index 3
--- NOTE | 2020-07-06 12:54 | XRay Report ---
CHEST 2 VIEWS INDICATION / CLINICAL INFORMATION: Chest Pain. Stress. COMPARISON: 11/23/19 FINDINGS: SUPPORT DEVICES: None. HEART / MEDIASTINUM: No significant abnormality. LUNGS / PLEURA: No significant pulmonary or pleural abnormality. No pneumothorax. ADDITIONAL FINDINGS: No significant additional findings. IMPRESSION: 1. No acute findings. No change. Signer Name: Joe Wright MD Signed: 07/06/2020 12:50 PM Workstation Name: [id number]
--- NOTE | 2020-07-06 18:16 | Emergency Department Report ---
ED Chest Pain HPI - General Chief Complaint: Chest Pain Stated Complaint: CHEST PAIN Time Seen by Provider: 07/06/20 11:37 Source: EMS Mode of arrival: Stretcher Limitations: No Limitations - History of Present Illness Initial Comments: This is a 75-year-old male presents to the emergency department with a complaint of some lower midsternal chest pain that started earlier in the day and has since resolved. The patient came by EMS from his personal [facility], [facility]. At some point during his initial ED course, the patient left by [employer] and went back to the personal [facility]. He was told by family to return to the emergency department for the rest of his evaluation. He has a past medical history of dementia, diabetes, hypertension, hyperlipidemia and previous prostate cancer. The patient was evaluated here in November 2019 for chest pain and had a negative stress test at that time. He denies any tobacco or illicit drug use. - Related Data Previous Rx's Medication Instructions Recorded Last Taken Type Aspirin EC [Halfprin EC] 81 mg PO QDAY #100 tablet 11/25/19 Unknown Rx Aspirin [Adult Aspirin] 81 mg PO QDAY #100 tablet.dr 11/25/19 Unknown Rx Melatonin [Melatonin 5MG TAB] 5 mg PO QHS tablet 11/25/19 Unknown Rx Melatonin [Melatonin 5MG TAB] 5 mg PO QHS #30 tablet 11/25/19 Unknown Rx Pravastatin Sodium [Pravastatin] 10 mg PO QHS #30 11/25/19 Unknown Rx Pravastatin [Pravachol] 10 mg PO QHS tablet 11/25/19 Unknown Rx Allergies Allergy/AdvReac Type Severity Reaction Status Date / Time No Known Allergies Allergy Unverified 11/06/19 18:48 Heart Score - HEART Score History: Slightly suspicious EKG: Non-specific Age: > 65 Risk factors: > 3 risk factors or hx of atherosclerotic disease Troponin: < normal limit HEART Score: 5 - EKG Read Time Time EKG Completed: 11:49 EKG Read Time: 11:51 ED Review of Systems ROS: Stated complaint: CHEST PAIN Other details as noted in HPI Comment: All other systems reviewed and negative Constitutional: denies: chills, fever Eyes: denies: eye pain, vision change ENT: denies: ear pain, throat pain Respiratory: denies: cough, shortness of breath Cardiovascular: chest pain. denies: palpitations Gastrointestinal: denies: abdominal pain, vomiting Genitourinary: denies: dysuria, discharge Musculoskeletal: denies: back pain, arthralgia Skin: denies: rash, lesions Neurological: denies: headache, weakness ED Past Medical Hx - Past Medical History Hx Hypertension: Yes Hx Diabetes: Yes Hx Renal Disease: No Hx Arthritis: No Hx Seizures: No Hx Dementia: Yes Additional medical history: HLD, prostate ca - Surgical History Hx Cholecystectomy: No Additional Surgical History: Prostate - Social History Smoking Status: Never Smoker - Medications Home Medications: Home Medications Medication Instructions Recorded Confirmed Last Taken Type Aspirin EC [Halfprin EC] 81 mg PO QDAY #100 tablet 11/25/19 Unknown Rx Aspirin [Adult Aspirin] 81 mg PO QDAY #100 tablet. 11/25/19 Unknown Rx Melatonin [Melatonin 5MG TAB] 5 mg PO QHS tablet 11/25/19 Unknown Rx Melatonin [Melatonin 5MG TAB] 5 mg PO QHS #30 tablet 11/25/19 Unknown Rx Pravastatin Sodium [Pravastatin] 10 mg PO QHS #30 11/25/19 Unknown Rx Pravastatin [Pravachol] 10 mg PO QHS tablet 11/25/19 Unknown Rx ED Physical Exam - General Limitations: No Limitations - Other Other exam information: GENERAL: The patient is well-developed well-nourished. HENT: Normocephalic. Atraumatic. Patient has moist mucous membranes. EYES: Extraocular motions are intact. NECK: Supple. Trachea is midline. CHEST/LUNGS: Clear to auscultation. There is no respiratory distress noted. HEART/CARDIOVASCULAR: Regular. There is no tachycardia. There is no murmur. ABDOMEN: Abdomen is soft, nontender. Patient has normal bowel sounds. There is no abdominal distention. SKIN: Skin is warm and dry. NEURO: The patient is awake, alert, and cooperative. The patient has no focal neurologic deficits. Normal speech. MUSCULOSKELETAL: There is no tenderness or deformity. There is no limitation range of motion. ED Course Vital Signs 07/06/20 07/06/20 07/06/20 11:09 18:41 18:46 Temperature 97.8 F Pulse Rate 66 65 Respiratory 18 16 15 Rate Blood Pressure 135/72 129/84 Blood Pressure 135/72 [Right] O2 Sat by Pulse 99 99 Oximetry 07/06/20 07/06/20 19:00 19:03 Temperature Pulse Rate 55 L Respiratory 15 16 Rate Blood Pressure 147/82 Blood Pressure [Right] O2 Sat by Pulse 98 Oximetry DARIO score - Dario Score Age > 65: (1) Yes Aspirin use within the Past 7 Days: (0) No 3 or more CAD Risk Factors: (1) Yes 2 or more Angina events in past 24 hrs: (1) Yes Known CAD with more than 50% Stenosis: (0) No Elevated Cardiac Markers: (0) No ST Deviation Greater than 0.5mm: (0) No DARIO Score: 3 ED Medical Decision Making - Lab Data Result diagrams: 07/06/20 11:56 07/06/20 11:56 Lab Results 07/06/20 07/06/20 07/06/20 Range/Units 11:56 11:56 11:56 WBC 4.8 (4.5-11.0) K/mm3 RBC 4.45 (3.65-5.03) M/mm3 Hgb 13.0 (11.8-15.2) gm/dl Hct 39.7 (35.5-45.6) % MCV 89 (84-94) fl MCH 29 (28-32) pg MCHC 33 (32-34) % RDW 15.3 H (13.2-15.2) % Plt Count 194 (140-440) K/mm3 Lymph % (Auto) 29.0 (13.4-35.0) % [place] % (Auto) 13.9 H (0.0-7.3) % Eos % (Auto) 4.8 H (0.0-4.3) % Baso % (Auto) 1.0 (0.0-1.8) % Lymph # (Auto) 1.4 (1.2-5.4) K/mm3 [place] # (Auto) 0.7 (0.0-0.8) K/mm3 Eos # (Auto) 0.2 (0.0-0.4) K/mm3 Baso # (Auto) 0.1 (0.0-0.1) K/mm3 Seg Neutrophils % 51.3 (40.0-70.0) % Seg Neutrophils # 2.5 (1.8-7.7) K/mm3 PT 12.9 (12.2-14.9) Sec. INR 0.99 (0.87-1.13) APTT 30.4 (24.2-36.6) Sec. Sodium 136 L (137-145) mmol/L Potassium 3.8 (3.6-5.0) mmol/L Chloride 100.3 (98-107) mmol/L Carbon Dioxide 27 (22-30) mmol/L Anion Gap 13 mmol/L BUN 10 (9-20) mg/dL Creatinine 1.2 (0.8-1.3) mg/dL Estimated GFR > 60 ml/min BUN/Creatinine Ratio 8 % Glucose 115 H (75-100) mg/dL Calcium 9.1 (8.4-10.2) mg/dL Total Bilirubin 0.30 (0.1-1.2) mg/dL AST 18 (5-40) units/L ALT 20 (7-56) units/L Alkaline Phosphatase 91 (35-129) units/L Troponin T < 0.010 (0.00-0.029) ng/mL Total Protein 7.4 (6.3-8.2) g/dL Albumin 4.0 (3.9-5) g/dL Albumin/Globulin Ratio 1.2 % 07/06/20 07/06/20 Range/Units 15:50 18:18 WBC (4.5-11.0) K/mm3 RBC (3.65-5.03) M/mm3 Hgb (11.8-15.2) gm/dl Hct (35.5-45.6) % MCV (84-94) fl MCH (28-32) pg MCHC (32-34) % RDW (13.2-15.2) % Plt Count (140-440) K/mm3 Lymph % (Auto) (13.4-35.0) % [place] % (Auto) (0.0-7.3) % Eos % (Auto) (0.0-4.3) % Baso % (Auto) (0.0-1.8) % Lymph # (Auto) (1.2-5.4) K/mm3 [place] # (Auto) (0.0-0.8) K/mm3 Eos # (Auto) (0.0-0.4) K/mm3 Baso # (Auto) (0.0-0.1) K/mm3 Seg Neutrophils % (40.0-70.0) % Seg Neutrophils # (1.8-7.7) K/mm3 PT (12.2-14.9) Sec. INR (0.87-1.13) APTT (24.2-36.6) Sec. Sodium (137-145) mmol/L Potassium (3.6-5.0) mmol/L Chloride (98-107) mmol/L Carbon Dioxide (22-30) mmol/L Anion Gap mmol/L BUN (9-20) mg/dL Creatinine (0.8-1.3) mg/dL Estimated GFR ml/min BUN/Creatinine Ratio % Glucose (75-100) mg/dL Calcium (8.4-10.2) mg/dL Total Bilirubin (0.1-1.2) mg/dL AST (5-40) units/L ALT (7-56) units/L Alkaline Phosphatase (35-129) units/L Troponin T < 0.010 < 0.010 (0.00-0.029) ng/mL Total Protein (6.3-8.2) g/dL Albumin (3.9-5) g/dL Albumin/Globulin Ratio % - EKG Data -: EKG Interpreted by Me EKG shows normal: sinus rhythm (Ventricular trigeminy), axis (Left axis deviation), intervals, QRS complexes ( right bundle branch block, left anterior fascicular block), ST-T waves Rate: normal - EKG Data When compared to previous EKG there are: no significant change Interpretation: unchanged when compared t (11/25/19) - Radiology Data Radiology results: image reviewed interpreted by me: Chest x-ray does not show any acute process. There are no pleural effusions, obvious pneumonia and there is no pneumothorax. No significant cardiomegaly. - Medical Decision Making This patient presents to the emergency department the complaint of midsternal lower chest pain. Heart and lung sounds are normal to auscultation. The dominick ent does not appear in any respiratory or acute distress. EKG does not have any morphology consistent with ST elevation myocardial infarction. Chest x-ray does not show any pneumonia, pleural effusions, pneumothorax, or any other acute process. Labs have been mostly unremarkable thus far including CBC, metabolic panel and negative troponins. The patient has a moderate heart and DARIO score. For this reason the patient will be admitted to the hospital for further evaluation and treatment was accepted for admission by the hospitalist, Dr. Vences. Critical Care Time: No Critical care attestation.: If time is entered above; I have spent that time in minutes in the direct care of this critically ill patient, excluding procedure time. ED Disposition Clinical Impression: Chest pain, rule out acute myocardial infarction Chest pain Qualifiers: Chest pain type: unspecified Qualified Code(s): R07.9 - Chest pain, unspecified Disposition: 09 OP ADMIT IP TO THIS HOSP Is pt being admited?: Yes Condition: Fair Time of Disposition: 19:29
[2020-07-06 18:28] LABS: Red Blood Count 4.45 M/mm3 (3.65-5.03)
[2020-07-06 18:29] LABS: Basophils # (Auto) 0.1 K/mm3 (0.0-0.1); Eosinophils # (Auto) 0.2 K/mm3 (0.0-0.4); Eosinophils % (Auto) 4.8 % (0.0-4.3); Hematocrit 39.7 % (35.5-45.6); Lymphocytes # (Auto) 1.4 K/mm3 (1.2-5.4); Mean Corpuscular HGB Conc 33 % (32-34); Mean Corpuscular Volume 89 fl (84-94); Monocytes # (Auto) 0.7 K/mm3 (0.0-0.8); Monocytes % (Auto) 13.9 % (0.0-7.3); Platelet Count 194 K/mm3 (140-440); Red Cell Distribution Width 15.3 % (13.2-15.2)
[2020-07-07] MEDS ORDERED: ACETAMINOPHEN 325 MG TAB PO PRN (01:28)
[2020-07-07] MEDS ORDERED: ONDANSETRON 4 MG/2 ML INJ IV PRN (01:28)
[2020-07-07] MEDS ORDERED: MORPHINE 2 MG/1 ML INJ IV PRN (01:28)
--- NOTE | 2020-07-07 06:59 | History and Physical Report ---
History of Present Illness Date of examination: 07/06/20 Date of admission: 07/06/20 19:29 Chief complaint: Chest pain since a.m. History of present illness: 75-year-old male with history of hyperlipidemia and insomnia comes in for retrosternal chest pain started in the morning. Patient [facility] No diaphoresis. Patient left with elbow and pain were were to the emergency room. No diaphoresis no shortness of breath. Patient has history of dementia hypertension and hyperlipidemia which is now reflected in his home medications. No fever or chills. No shortness of breath. No exposure to coronavirus. - Past Medical History Hx Hypertension: Yes Hx Diabetes: Yes Hx Dementia: Yes Additional medical history: HLD, prostate ca - Surgical History Hx Cholecystectomy: No Additional Surgical History: Prostate - Social History Smoking Status: Never Smoker - Medications Home Medications: Home Medications Medication Instructions Recorded Confirmed Last Taken Type Aspirin EC [Halfprin EC] 81 mg PO QDAY #100 tablet 11/25/19 Unknown Rx Aspirin [Adult Aspirin] 81 mg PO QDAY #100 tablet. 11/25/19 Unknown Rx Melatonin [Melatonin 5MG TAB] 5 mg PO QHS tablet 11/25/19 Unknown Rx Melatonin [Melatonin 5MG TAB] 5 mg PO QHS #30 tablet 11/25/19 Unknown Rx Pravastatin Sodium [Pravastatin] 10 mg PO QHS #30 11/25/19 Unknown Rx Pravastatin [Pravachol] 10 mg PO QHS tablet 11/25/19 Unknown Rx Review of Systems ROS: Stated complaint: CHEST PAIN Other details as noted in HPI Comment: All other systems reviewed and negative Constitutional: denies: chills, fever Eyes: denies: eye pain, vision change ENT: denies: ear pain, throat pain Respiratory: denies: cough, shortness of breath Cardiovascular: chest pain. denies: palpitations Gastrointestinal: denies: abdominal pain, vomiting Genitourinary: denies: dysuria, discharge Musculoskeletal: denies: back pain, arthralgia Skin: denies: rash, lesions Neurological: denies: headache, weakness Medications and Allergies Allergies Allergy/AdvReac Type Severity Reaction Status Date / Time No Known Allergies Allergy Unverified 11/06/19 18:48 Home Medications Medication Instructions Recorded Confirmed Last Taken Type Aspirin EC [Halfprin EC] 81 mg PO QDAY #100 tablet 11/25/19 Unknown Rx Aspirin [Adult Aspirin] 81 mg PO QDAY #100 tablet.dr 11/25/19 Unknown Rx Melatonin [Melatonin 5MG TAB] 5 mg PO QHS tablet 11/25/19 Unknown Rx Melatonin [Melatonin 5MG TAB] 5 mg PO QHS #30 tablet 11/25/19 Unknown Rx Pravastatin Sodium [Pravastatin] 10 mg PO QHS #30 11/25/19 Unknown Rx Pravastatin [Pravachol] 10 mg PO QHS tablet 11/25/19 Unknown Rx Active Meds: Active Medications Acetaminophen (Acetaminophen 325 Mg Tab) 650 mg PO Q4H PRN PRN Reason: Pain MILD(1-3)/Fever >100.5/CASPER Aspirin (Aspirin Ec 81 Mg Tab) 81 mg PO QDAY HOLLY Famotidine (Famotidine 20 Mg/2 Ml Inj) 20 mg IV BID HOLLY Melatonin (Melatonin 5 Mg Tab) 5 mg PO QHS HOLLY Morphine Sulfate (Morphine 2 Mg/1 Ml Inj) 2 mg IV Q4H PRN PRN Reason: Pain, Moderate (4-6) Ondansetron HCl (Ondansetron 4 Mg/2 Ml Inj) 4 mg IV Q8H PRN PRN Reason: Nausea And Vomiting Pravastatin Sodium (Pravastatin 20 Mg Tab) 10 mg PO QHS HOLLY Sodium Chloride (Sodium Chloride 0.9% 10 Ml Flush Syringe) 10 ml IV BID HOLLY Sodium Chloride (Sodium Chloride 0.9% 10 Ml Flush Syringe) 10 ml IV PRN PRN PRN Reason: LINE FLUSH Exam - Constitutional Vitals: Temp Pulse Resp BP Pulse Ox 98.1 F 51 L 16 95/56 100 07/07/20 03:45 07/07/20 03:45 07/07/20 03:45 07/07/20 03:45 07/07/20 03:45 General appearance: Present: no acute distress, well-nourished - EENT Eyes: Present: PERRL ENT: hearing intact, clear oral mucosa - Neck Neck: Present: supple, normal ROM - Respiratory Respiratory effort: normal Respiratory: bilateral: CTA - Cardiovascular Heart rate: 78 Rhythm: regular Heart Sounds: Present: S1 & S2. Absent: rub, click - Extremities Extremities: pulses symmetrical, No edema Peripheral Pulses: within normal limits - Abdominal General gastrointestinal: Present: soft, non-tender, non-distended, normal bowel sounds Male genitourinary: Present: normal - Integumentary Integumentary: Present: clear, warm, dry - Musculoskeletal Musculoskeletal: gait normal, strength equal bilaterally - Psychiatric Psychiatric: appropriate mood/affect, intact judgment & insight - Neurologic Neurologic: CNII-XII intact, moves all extremities - Allied Health Allied health notes reviewed: nursing, case management HEART Score - HEART Score EKG: Non-specific Age: > 65 Risk factors: > 3 risk factors or hx of atherosclerotic disease Troponin: Troponin T < 0.010 ng/mL (0.00-0.029) 07/07/20 02:09 Troponin: < normal limit Results - Labs CBC & Chem 7: 07/06/20 11:56 07/06/20 11:56 Labs: Laboratory Last Values WBC 4.8 K/mm3 (4.5-11.0) 07/06/20 11:56 RBC 4.45 M/mm3 (3.65-5.03) 07/06/20 11:56 Hgb 13.0 gm/dl (11.8-15.2) 07/06/20 11:56 Hct 39.7 % (35.5-45.6) 07/06/20 11:56 MCV 89 fl (84-94) 07/06/20 11:56 MCH 29 pg (28-32) 07/06/20 11:56 MCHC 33 % (32-34) 07/06/20 11:56 RDW 15.3 % (13.2-15.2) H 07/06/20 11:56 Plt Count 194 K/mm3 (140-440) 07/06/20 11:56 Lymph % (Auto) 29.0 % (13.4-35.0) 07/06/20 11:56 [place] % (Auto) 13.9 % (0.0-7.3) H 07/06/20 11:56 Eos % (Auto) 4.8 % (0.0-4.3) H 07/06/20 11:56 Baso % (Auto) 1.0 % (0.0-1.8) 07/06/20 11:56 Lymph # (Auto) 1.4 K/mm3 (1.2-5.4) 07/06/20 11:56 [place] # (Auto) 0.7 K/mm3 (0.0-0.8) 07/06/20 11:56 Eos # (Auto) 0.2 K/mm3 (0.0-0.4) 07/06/20 11:56 Baso # (Auto) 0.1 K/mm3 (0.0-0.1) 07/06/20 11:56 Seg Neutrophils % 51.3 % (40.0-70.0) 07/06/20 11:56 Seg Neutrophils # 2.5 K/mm3 (1.8-7.7) 07/06/20 11:56 PT 12.9 Sec. (12.2-14.9) 07/06/20 11:56 INR 0.99 (0.87-1.13) 07/06/20 11:56 APTT 30.4 Sec. (24.2-36.6) 07/06/20 11:56 Sodium 136 mmol/L (137-145) L 07/06/20 11:56 Potassium 3.8 mmol/L (3.6-5.0) 07/06/20 11:56 Chloride 100.3 mmol/L (98-107) 07/06/20 11:56 Carbon Dioxide 27 mmol/L (22-30) 07/06/20 11:56 Anion Gap 13 mmol/L 07/06/20 11:56 BUN 10 mg/dL (9-20) 07/06/20 11:56 Creatinine 1.2 mg/dL (0.8-1.3) 07/06/20 11:56 Estimated GFR > 60 ml/min 07/06/20 11:56 BUN/Creatinine Ratio 8 % 07/06/20 11:56 Glucose 115 mg/dL (75-100) H 07/06/20 11:56 Calcium 9.1 mg/dL (8.4-10.2) 07/06/20 11:56 Total Bilirubin 0.30 mg/dL (0.1-1.2) 07/06/20 11:56 AST 18 units/L (5-40) 07/06/20 11:56 ALT 20 units/L (7-56) 07/06/20 11:56 Alkaline Phosphatase 91 units/L (35-129) 07/06/20 11:56 Troponin T < 0.010 ng/mL (0.00-0.029) 07/07/20 02:09 Total Protein 7.4 g/dL (6.3-8.2) 07/06/20 11:56 Albumin 4.0 g/dL (3.9-5) 07/06/20 11:56 Albumin/Globulin Ratio 1.2 % 07/06/20 11:56 - Imaging and Cardiology EKG: report reviewed (Rhythm no acute ST-T wave changes) Chest x-ray: report reviewed (No acute findings) [place]/IV: Voiding Method Toilet Assessment and Plan Advance Directives: Yes (Full code) VTE prophylaxis?: Chemical Plan of care discussed with patient/family: Yes - Patient Problems (1) Acute coronary syndrome Current Visit: Yes Status: Acute Plan to address problem: Serial troponins and Lexiscan in the morning Differential diagnosis of costochondritis and GERD (2) Hyperlipidemia Current Visit: Yes Status: Acute Plan to address problem: Continue statins (3) Hypertension Current Visit: Yes Status: Chronic Qualifiers: Hypertension type: essential hypertension Qualified Code(s): I10 - Essential (primary) hypertension Plan to address problem: Patient's blood pressure is normal We will trend the blood pressure and start on antihypertensives if necessary (4) Dementia Current Visit: Yes Status: Chronic Qualifiers: Dementia type: vascular dementia Plan to address problem: Mild Supportive care (5) DVT prophylaxis Current Visit: Yes Status: Acute Plan to address problem: On heparin and GI prophylaxis
[2020-07-07] MEDS ORDERED: ASPIRIN EC 81 MG TAB PO SCH (10:00)
[2020-07-07] MEDS ORDERED: FAMOTIDINE 20 MG/2 ML INJ IV SCH (10:00)
[2020-07-07] MEDS ORDERED: HEPARIN 5,000 UNIT/1 ML VIAL SUB-Q SCH (10:00)
[2020-07-07] MEDS ORDERED: REGADENOSON 0.4 MG/5 ML INJ IV ONE ×2 (10:55→11:01)
--- NOTE | 2020-07-07 12:43 | Discharge Summary ---
Providers - Providers Date of Admission: 07/06/20 19:29 Date of discharge: 07/07/20 Attending physician: DINORAH COVARRUBIAS Primary care physician: MARC FREITAS Hospitalization Condition: Fair Hospital course: 75-year-old male with history of hyperlipidemia and insomnia comes in for retrosternal chest pain started in the morning. Patient is personal senior care. No diaphoresis. Patient left with elbow and pain were were to the emergency room. No diaphoresis no shortness of breath. Patient has history of dementia hypertension and hyperlipidemia which is now reflected in his home medications. No fever or chills. No shortness of breath. No exposure to coronavirus. Hospital course Patient was admitted for chest pain rule out. Patient had a stress test which was negative. Patient will be discharged to follow-up with PCP in the office. He will continue his medications at this time. He agrees with management and plan Disposition: DC-01 TO HOME OR SELFCARE Final Discharge Diagnosis (Prints w/discharge instructions): Chest pain Time spent for discharge: 20 minutes Core Measure Documentation - Palliative Care Palliative Care/ Comfort Measures: Not Applicable - Core Measures Any of the following diagnoses?: none Exam - Constitutional Vitals: Temp Pulse Resp BP Pulse Ox 98.1 F 57 L 18 135/87 96 07/07/20 03:45 07/07/20 09:01 07/07/20 08:08 07/07/20 08:08 07/07/20 08:08 General appearance: Present: no acute distress, well-nourished - EENT Eyes: Present: PERRL ENT: hearing intact, clear oral mucosa - Neck Neck: Present: supple, normal ROM - Respiratory Respiratory effort: normal Respiratory: bilateral: CTA - Cardiovascular Heart Sounds: Present: S1 & S2. Absent: rub, click - Extremities Extremities: pulses symmetrical, No edema Peripheral Pulses: within normal limits - Abdominal General gastrointestinal: Present: soft, non-tender, non-distended, normal bowel sounds Male genitourinary: Present: normal - Integumentary Integumentary: Present: clear, warm, dry - Musculoskeletal Musculoskeletal: gait normal, strength equal bilaterally - Psychiatric Psychiatric: appropriate mood/affect, intact judgment & insight - Neurologic Neurologic: CNII-XII intact, moves all extremities Plan Diet: low salt Additional Instructions: Continue home medications Follow up with: MARC FREITAS MD [Primary Care Provider] - 3-5 Days
[2020-07-07 16:50] VITALS: BP 109/73
[2020-07-07] MEDS ORDERED: MELATONIN 5 MG TAB PO SCH (22:00)
[2020-07-07] MEDS ORDERED: PRAVASTATIN 20 MG TAB PO SCH (22:00)
--- NOTE | 2020-07-08 10:08 | Nuclear Medicine Report ---
APPROVED REPORT Exam: Nuclear Stress Test Indication: Chest pain BMI: 0 Stress Test Details Stress Test: Pharmacologic stress testing performed using 0.4 mg of regadenoson per 5 mL given IV over 10 seconds. HR Resting HR: 51 bpmMax Heart Rate (APMHR): 143 bpm Max HR Achieved: 84 bpmTarget HR (85% APMHR): 121 bpm % of APMHR: 58 Recovery HR: 78 bpm HR response to stress: Normal HR response to stress BP Resting BP: 137/85 mmHg Max BP: 156/93 mmHg Recovery BP: 138/83 mmHg BP response to stress: Normal blood pressure response to stress. ECG Resting ECG: Sinus Rhythm rbbb Stress ECG: Sinus Rhythm Recovery ECG: Clear Clinical Reason for Termination: Completed protocol NM EXAM: Myocardial Perfusion REST/STRESS Imaging Protocol: Rest Tc-99m/Stress Tc-99m 1 day Resting Data Rest SPECT myocardial perfusion imaging was performed in supine position 45 minutes following the intravenous injection of 10 mCi of Tc-99m Myoview. Time of rest injection: 1100 Pharmacologic Stress Pharmacologic stress test was performed by injecting Regadenoson 0.4 mg IV push followed by the intravenous injection of 28 mCi of Tc-99m Myoview. Time of stress injection: 1230 Gated Stress SPECT was performed 30 minutes after stress injection. Study Data TID = 1.15. Perfusion Nuclear Conclusion ECG Findings: negative for ischemia Clinical Findings: negative for ischemia Nuclear Findings: negative for ischemia Exercise Capacity: not assessed Left Ventricular Function: normal Normal study. No scintigraphic evidence for myocardial ischemia or scar. Normal left ventricular size and function with no regional wall motion abnormalities.
--- NOTE | 2020-07-09 10:32 | Electrocardiograph Report ---
[facility] Test Date: 2020-07-06 Test Time: 11:49:56 Pat Name: BRYAN GONZALEZ Department: Room: A454 1 Gender: M [employer]: : 1945 Requested By: JULIUS ARREGUIN Order Number: [id number] Reading MD: Susan Alexis Measurements Intervals [place] Rate: 63 P: 44 OR: 164 QRS: -51 QRSD: 146 T: 38 QT: 443 QTc: 455 Interpretive Statements Sinus rhythm Ventricular ectopy RBBB and LAFB No previous ECG available for comparison Electronically Signed On 07-09-2020 10:31:50 EDT by Susan Alexis
== END 2020-07-07 16:55 | disposition home or self-care (01) ==
LOC: ED 10:26 → 4A 19:29
PROVIDERS: ADMIT Internal Medicine; ATTEND Internal Medicine
DX: I24.9 Acute ischemic heart disease, unspecified (principal); I10 Essential (primary) hypertension; E11.9 Type 2 diabetes mellitus without complications; E78.5 Hyperlipidemia, unspecified; F03.90 Unspecified dementia, unspecified severity, without behavioral disturbance, psychotic disturbance, mood disturbance, and anxiety; Z85.46 Personal history of malignant neoplasm of prostate; Z79.82 Long term (current) use of aspirin
CPT/HCPCS: 36415; 71046; 78452; 80053; 84484; 85025; 85610; 85730; 93005; 93017; 99285; A9502; G0378; J2785